=== PATIENT | female | born 1930 | race Caucasian/White ===

== ENCOUNTER 2017-08-21 21:34 | Emergency (ER) | payer MEDICARE, BC ==
[~2017-08-21] VITALS: Ht 157.5 cm; Wt 68.0 kg
[~2017-08-21 21:34] MED LIST: ALBUTEROL2.5 MG/3 M INH; ALLEGRA PO; ALLEGRA180 MG PO; AMBIEN5 MG PO; ASPIR-LOW81 MG PO; ATIVAN0.5 MG PO; CALCIUM 600+D1 EACH PO; CARDIZEM LA180 MG PO; CENTRUM SILVER1 EAC1 PO; CENTRUM SILVER1 EAC3 PO; DIFLUCAN100 MG PO; FEXOFENADINE H180 MG PO; FLONASE16 GM; GLUCOSAMINE CH1 EAC1 PO; HYZAAR 100-251 EACH PO; IPRATROPIU0.2 MG/1 M INH; KLOR-CON 1010 MEQ PO; LEVAQUIN500 MG PO; LEVOFLOXACIN500 MG PO; LINZESS PO; NYSTATIN100000 UNI TOP; OMEGA-31000 MG PO; OMEPRAZOLE40 MG PO; PEPCID20 MG PO; PREDNISONE10 MG PO; SIMVASTATIN20 MG PO; SYMBICORT 80-10.2 GM INH; TENORETIC 50 T1 EACH PO; TESSALON PERLE100 MG PO; VITAMIN B-121000 MCG PO
[2017-08-21] MEDS ORDERED: OXYMETAZOLINE HCL 0.05% NAS 1 SPRAY BTL ONE ×2 (21:56→22:00)
[2017-08-21 22:29] LABS: BASOPHILS # (AUTO) 0.1 (0.0-0.1); EOSINOPHILS # (AUTO) 0.3 (0.0-0.4); EOSINOPHILS % 3.1 % (0.0-6.0); HEMATOCRIT 39.3 % (34.2-44.1); HEMOGLOBIN 13.3 g/dL (12.0-16.0); LYMPHOCYTES # (AUTO) 2.4 (1.0-3.2); LYMPHOCYTES % 30.1 % (18.0-39.1); MEAN CORPUSCULAR HEMOGLOBIN 31.4 pg (28-32); MEAN CORPUSCULAR HGB CONC 33.8 g/dL (31-35); MEAN CORPUSCULAR VOLUME 92.9 fL (81-99); MONOCYTES # (AUTO) 0.9 (0.2-0.8); MONOCYTES % 11.4 % (4.4-11.3); NEUTROPHILS # (AUTO) 4.4 (2.1-6.9); PLATELET COUNT 258 x10e3/uL (140-360); RED BLOOD COUNT 4.23 x10e6/uL (3.6-5.1); RED CELL DISTRIBUTION WIDTH 13.9 % (11.7-14.4)
[2017-08-21 22:33] LABS: PROTHROMBIN TIME 12.4 seconds (11.9-14.5)
[2017-08-21 22:34] LABS: PARTIAL THROMBOPLASTIN TIME 30.9 seconds (23.8-35.5)
[2017-08-21 22:42] LABS: ALBUMIN 3.8 g/dL (3.5-5.0); ALBUMIN/GLOBULIN RATIO 1.4 (0.8-2.0); ANION GAP 13.5 mmol/L (8-16); CALCIUM 10.2 mg/dL (8.4-10.2); CREATININE, SERUM 0.99 mg/dL (0.57-1.11); POTASSIUM 3.5 mmol/L (3.5-5.1)
[2017-08-21 23:05] VITALS: BP 133/73
== END 2017-08-21 23:25 | disposition home or self-care (01) ==
LOC: ER 21:34
DX: R04.0 Epistaxis (principal); I10 Essential (primary) hypertension; J44.9 Chronic obstructive pulmonary disease, unspecified; K21.9 Gastro-esophageal reflux disease without esophagitis; F41.9 Anxiety disorder, unspecified; Z79.82 Long term (current) use of aspirin
CPT/HCPCS: 36415; 80053; 85025; 85610; 85730; 93005; 99283